=== PATIENT | male | born 1985 | race Caucasian/White ===

== ENCOUNTER 2022-01-11 12:11 | Outpatient (CLI) | payer OTHER | END 2022-01-11 12:12 | disposition home or self-care (01) | LOC: CT 12:11 | PROVIDERS: ATTEND Otolaryngology Otolaryngic Allergy | DX: H90.41 Sensorineural hearing loss, unilateral, right ear, with unrestricted hearing on the contralateral side (principal) | CPT/HCPCS: 70480 ==